=== PATIENT | female | born 1960 | race Caucasian/White ===

== ENCOUNTER → 2016-11-04 | Outpatient (CLI) | payer OTHER ==
--- NOTE | 2016-11-04 11:26 | MA ---
Screening Digital Mammogram With Tomosynthesis Clinical Indications: Routine screening. Technique: Standard digital cephalocaudal and tomosynthesis mediolateral oblique projections are obt ained. The digital images are processed by the [employer] [place] computer aided detection system. Comparison: 2007, 2008, 2009, 2010, 2012, 2013, 2013, 2015 and 2016 Breast density: C; The breast tissue is heterogeneously dense, which could obscure detection of small masses. Findings: CAD was reviewed. No suspicious findings are identified. Impression: Negative mammogram. BI-RADS 1. Recommendation: Routine screening is recommended in one year, as long as physical examination is александр ign in this patient with moderately dense breast parenchyma. [facility] will send a result letter to the patient. Negative mammography should not preclude additional workup of a clinically suspicious finding. The patient's information is entered into a reminder system with a target due date for her next mammo gram.
== END ==
LOC: FIMAGING 10:44
DX: Z12.31 Encounter for screening mammogram for malignant neoplasm of breast (principal)
CPT/HCPCS: G0202

== ENCOUNTER 2017-01-08 14:11 | Emergency (ER) | payer OTHER ==
[2017-01-08 14:23] VITALS: RESP 18
[2017-01-08] MEDS ORDERED: IPRATROPIUM/ALBUTEROL 3 ML DEYVIAL ONE (14:50)
[2017-01-08] MEDS ORDERED: IPRATROPIUM/ALBUTEROL 3 ML DEYVIAL IH ONE ×3 (14:50→16:35)
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
[2017-01-08] MEDS ORDERED: methylPREDNISolone 4 MG TAB PO ONE (15:50)
[2017-01-08 17:36] VITALS: BP 153/97; PULSE 99; TEMP 98.1; O2SAT 96
== END 2017-01-08 17:36 | disposition home or self-care (01) ==
DX: J45.909 Unspecified asthma, uncomplicated (principal); Z85.43 Personal history of malignant neoplasm of ovary

== ENCOUNTER 2017-02-05 19:05 | Emergency (ER) | payer OTHER ==
[2017-02-05] MEDS ORDERED: HYDROmorphONE/DILAUDID 1 MG/ML SYR IM ONE (19:17)
--- NOTE | 2017-02-05 19:19 | EDPHY ---
H & P Time Seen by Provider: 02/05/17 19:13 HPI/ROS: CHIEF COMPLAINT: Right foot pain HISTORY OF PRESENT ILLNESS: The patient is a 56-year-old healthy female who comes to the emergency department complaining of pain in her right foot. She states that she tripped down the last 3 steps at home just prior to arrival. She has some mild bruising and swelling over the 1st 2nd and 3rd MTP joints. Extreme tenderness even with light touch. Normal capillary refill and sensation. No ankle or proximal or mid foot pain. She denies injuries to her other extremities or head or torso. REVIEW OF SYSTEMS: Constitutional: denies: chills, fever, recent illness, recent injury EENTM: denies: blurred vision, double vision, nose congestion Respiratory: denies: cough, shortness of breath Cardiac: denies: chest pain, irregular heart rate, lightheadedness, palpitations Gastrointestinal/Abdominal: denies: abdominal pain, diarrhea, nausea, vomiting, blood streaked stools Genitourinary: denies: dysuria, frequency, hematuria, pain Musculoskeletal: See HPI Skin: denies: lesions, rash, jaundice, bruising Neurological: denies: headache, numbness, paresthesia, tingling, dizziness, weakness Hematologic/Lymphatic: denies: blood clots, easy bleeding, easy bruising Immunologic/allergic: denies: HIV/AIDS, transplant EXAM: GENERAL: Well-appearing, well-nourished and in no acute distress. HEAD: Atraumatic, normocephalic. EYES: Pupils equal round and reactive to light, extraocular movements intact, sclera anicteric, conjunctiva are normal. ENT: TMs normal, nares patent, oropharynx clear without exudates. Moist mucous membranes. NECK: Normal range of motion, supple without lymphadenopathy or JVD. LUNGS: Breath sounds clear to auscultation bilaterally and equal. No wheezes rales or rhonchi. HEART: Regular rate and rhythm without murmurs, rubs or gallops. ABDOMEN: Soft, nontender, normoactive bowel sounds. No guarding, no rebound. No masses appreciated. BACK: No CVA tenderness, no spinal tenderness, step-offs or deformities EXTREMITIES: Pain and bruising to for 2nd 3rd MTP joints see above NEUROLOGICAL: Cranial nerves II through XII grossly intact. Normal speech, normal gait. 5/5 strength, normal movement in all extremities, normal sensation PSYCH: Normal mood, normal affect. SKIN: Warm, dry, normal turgor, no visible rashes or lesions. Source: Patient Exam Limitations: No limitations - Personal History Tetanus Vaccine Date: 2003 - Medical/Surgical History Hx Asthma: Yes Hx Chronic Respiratory Disease: No Hx Diabetes: No Hx Cardiac Disease: No Hx Renal Disease: No Hx Cirrhosis: No Hx Alcoholism: No Hx HIV/AIDS: No Hx Splenectomy or Spleen Trauma: No Other PMH: PNEUMONIA IN 2016, ENDOMETRIOSIS WITH SURGERIES, TONSILLECTOMY, HYST , ALLERGIES-SEASONAL,HYPOTHYROID;ASTHMA. OVARIAN CA, FRACTURES- FIBULA- PLATE AND SCREWS, L AND R ANKLE FXS, CHOLECYSTECTOMY 2005, APPENDECTOMY, - Family History Significant Family History: No pertinent family hx - Social History Smoking Status: Never smoked Alcohol Use: Sober Drug Use: None Constitutional: Initial Vital Signs Temperature (C) 36.9 C 02/05/17 19:22 Heart Rate 74 02/05/17 19:22 Respiratory Rate 20 02/05/17 19:22 Blood Pressure 206/100 H 02/05/17 19:22 O2 Sat (%) 97 02/05/17 19:22 O2 Delivery Mode Room Air Allergies/Adverse Reactions: codeine Allergy (Verified 02/05/17 19:20) mushrooms Allergy (Uncoded 02/05/17 19:20) peppers Allergy (Uncoded 02/05/17 19:20) Home Medications: Medication Instructions Recorded Montelukast Sodium [Singulair 10 10 mg PO DAILY18 03/09/12 mg (*)] Fluticasone Nasal [Flonase Nasal 1 sprays NASAL HS PRN 04/21/12 [place]] Albuterol [Proventil Inhaler HFA 2 puffs IH BID 01/12/16 (*)] EPINEPHRINE [EPIPEN] 0.3 mg IM ONCE PRN 09/11/16 Levalbuterol 1.25 mg [Xopenex 1.25 mg IH TID PRN 09/11/16 1.25MG Neb (*)] Levothyroxine [Synthroid 75 mcg 75 mcg PO DAILY06 09/11/16 (*)] Estrace 01/08/17 Prednisone 01/08/17 Premarin 01/08/17 Spiriva Handihaler 01/08/17 Xopenex 01/08/17 oxyCODONE/APAP [Percocet 1 - 2 tab PO Q4H PRN #10 tab 02/05/17325 (*)] Medical Decision Making - Diagnostics Imaging Results: Imaging Impressions Foot X-Ray 02/05/17 19:17 Impression: Comminuted, intraarticular fracture at the base of the distal phalanx of the right great toe. Imaging: I viewed and interpreted images myself Procedures: Procedure: Splint placement. A [place] boot splint was applied. After application of the splint I returned and re-examined the patient. The splint was adequately immobilizing the joint and distal to the splint the patient's circulation and sensation was intact. ED Course/Re-evaluation: We discussed the x-ray results. She is placed in a [place] boot. She feels much more comfortable. She is requesting Percocet for pain. She has Zofran at home that she will take because it typically makes her nauseous. I will refer her to Podiatry because this is intra-articular. She and her understand and agree with this plan. They declined further workup or testing at this time. Differential Diagnosis: Partial list of the Differential diagnosis considered include but were not limited to; toe fracture, foot fracture, contusion, tendon injury and although unlikely based on the history and physical exam, I also considered infection, vascular injury. I discussed these differential diagnoses and the plan with the patient as well as the usual and expected course. The patient understands that the diagnosis is provisional and that in medicine we are not always correct and that further workup is often warranted. Usual and customary warnings were given. All of the patient's questions were answered. The patient was instructed to return to the emergency department should the symptoms at all worsen or return, otherwise to followup with the physician as we discussed. - Data Points Medications Given: Discontinued Medications Hydromorphone HCl (Dilaudid) 1 mg IM EDNOW ONE Stop: 02/05/17 19:18 Last Admin: 02/05/17 19:20 Dose: 1 mg Departure - Departure Disposition: Home, Routine, Self-Care Clinical Impression: Phalanx fracture, foot Qualifiers: Encounter type: initial encounter Toe: great toe Fracture type: closed Phalanx : distal Fracture alignment: displaced Laterality: right Qualified Code(s): S92.421A - Displaced fracture of distal phalanx of right great toe, initial encounter for closed fracture Condition: Fair Instructions: Toe Fracture (ED) Referrals: Sabi Gan MD [Primary Care Provider] - As per Instructions Cyndi Quintero DPM [Doctor of Podiatric Medicine] - As per Instructions Prescriptions: oxyCODONE/APAP 5/325 [Percocet 5/325 (*)] 1 - 2 tab PO Q4H PRN #10 tab PRN Reason: Pain, Severe
[2017-02-05 19:25] VITALS: RESP 20; TEMP 98.4
[2017-02-05] MEDS ORDERED: HYDROmorphONE/DILAUDID 1 MG/ML SYR ONE (19:26)
[2017-02-05 20:17] VITALS: BP 156/99; PULSE 72; O2SAT 95
== END 2017-02-05 20:16 | disposition home or self-care (01) ==
LOC: CED 19:05
DX: S92.421A Displaced fracture of distal phalanx of right great toe, initial encounter for closed fracture (principal); J45.909 Unspecified asthma, uncomplicated; Z85.43 Personal history of malignant neoplasm of ovary; W10.8XXA Fall (on) (from) other stairs and steps, initial encounter; Y92.009 Unspecified place in unspecified non-institutional (private) residence as the place of occurrence of the external cause
CPT/HCPCS: 73630-PO; J1170; L4386

== ENCOUNTER → 2017-03-02 | Outpatient (CLI) | payer OTHER | LOC: BMCIMAGING 14:21 | PROVIDERS: ATTEND Podiatrist Foot & Ankle Surgery | DX: S92.421D Displaced fracture of distal phalanx of right great toe, subsequent encounter for fracture with routine healing (principal) ==

== ENCOUNTER → 2017-03-04 | Outpatient (CLI) | payer OTHER | LOC: BMCIMAGING 16:01 | PROVIDERS: ATTEND Allergy & Immunology Allergy | DX: J40 Bronchitis, not specified as acute or chronic (principal) ==

== ENCOUNTER → 2017-04-01 | Outpatient (CLI) | payer OTHER | LOC: BMCIMAGING 13:32 | PROVIDERS: ATTEND Podiatrist Foot & Ankle Surgery | DX: S92.421D Displaced fracture of distal phalanx of right great toe, subsequent encounter for fracture with routine healing (principal) ==

== ENCOUNTER → 2017-05-05 | Outpatient (CLI) | payer OTHER | LOC: BMCIMAGING 15:58 | PROVIDERS: ATTEND Family Medicine | DX: S90.122A Contusion of left lesser toe(s) without damage to nail, initial encounter (principal); W22.8XXA Striking against or struck by other objects, initial encounter ==

== ENCOUNTER → 2017-05-10 | Outpatient (CLI) | payer OTHER | LOC: BMCIMAGING 12:46 | PROVIDERS: ATTEND Podiatrist Foot & Ankle Surgery | DX: S92.421D Displaced fracture of distal phalanx of right great toe, subsequent encounter for fracture with routine healing (principal) ==

== ENCOUNTER → 2017-05-24 | Outpatient (CLI) | payer OTHER | LOC: BMCIMAGING 13:06 | PROVIDERS: ATTEND Podiatrist Foot & Ankle Surgery | DX: S92.502D Displaced unspecified fracture of left lesser toe(s), subsequent encounter for fracture with routine healing (principal) ==

== ENCOUNTER → 2017-07-29 | Outpatient (CLI) | payer OTHER | LOC: BMCIMAGING 12:40 | PROVIDERS: ATTEND Podiatrist Foot & Ankle Surgery | DX: S92.421D Displaced fracture of distal phalanx of right great toe, subsequent encounter for fracture with routine healing (principal) ==

== ENCOUNTER → 2017-11-05 | Outpatient (CLI) | payer OTHER | LOC: FIMAGING 10:16 | PROVIDERS: ATTEND Family Medicine | DX: Z12.31 Encounter for screening mammogram for malignant neoplasm of breast (principal) ==

== ENCOUNTER → 2018-01-20 | Outpatient (CLI) | payer OTHER | LOC: FIMAGING 12:52 | PROVIDERS: ATTEND Family Medicine | DX: Z13.820 Encounter for screening for osteoporosis (principal); M85.89 Other specified disorders of bone density and structure, multiple sites; N28.89 Other specified disorders of kidney and ureter; Z87.42 Personal history of other diseases of the female genital tract; Z87.440 Personal history of urinary (tract) infections; Z85.43 Personal history of malignant neoplasm of ovary ==

== ENCOUNTER → 2018-02-01 | Outpatient (CLI) | payer OTHER ==
[~2018-02-01] MED LIST: IOPAMIDOL (ISOVUE-300) 150 ML BTL ONE
== END ==
LOC: FIMAGING 10:57
PROVIDERS: ATTEND Urology
DX: N28.89 Other specified disorders of kidney and ureter (principal); N28.1 Cyst of kidney, acquired; K76.89 Other specified diseases of liver; M51.26 Other intervertebral disc displacement, lumbar region; M48.061 Spinal stenosis, lumbar region without neurogenic claudication; Z90.49 Acquired absence of other specified parts of digestive tract; Z90.710 Acquired absence of both cervix and uterus
CPT/HCPCS: Q9967

== ENCOUNTER → 2018-02-07 | Outpatient (CLI) | payer OTHER | LOC: FIMAGING 12:28 | PROVIDERS: ATTEND Allergy & Immunology Allergy | DX: J45.909 Unspecified asthma, uncomplicated (principal) ==

== ENCOUNTER → 2018-02-16 | Outpatient (CLI) | payer OTHER ==
[~2018-02-16] MED LIST changes: +FUROSEMIDE 40 MG/4 ML VIAL ONE; -IOPAMIDOL (ISOVUE-300) 150 ML BTL ONE
== END ==
LOC: FIMAGING 12:48
PROVIDERS: ATTEND Urology
DX: N28.9 Disorder of kidney and ureter, unspecified (principal)
CPT/HCPCS: A9562; J1940

== ENCOUNTER → 2018-09-15 | Outpatient (CLI) | payer OTHER | LOC: FIMAGING 08:44 | PROVIDERS: ATTEND Otolaryngology | DX: J32.0 Chronic maxillary sinusitis (principal); Z98.890 Other specified postprocedural states ==

== ENCOUNTER → 2018-11-07 | Outpatient (CLI) | payer BC | LOC: FIMAGING 10:11 | PROVIDERS: ATTEND Family Medicine | DX: Z12.31 Encounter for screening mammogram for malignant neoplasm of breast (principal) ==

== ENCOUNTER 2019-02-26 14:25 | Emergency (ER) | payer BC ==
[2019-02-26] MEDS ORDERED: ACETAMINOPHEN 500 MG TAB ONE (14:35)
[2019-02-26] MEDS ORDERED: IBUPROFEN 600 MG TAB PO ONE (14:35)
--- NOTE | 2019-02-26 15:08 | EDPHY ---
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 She landed on her left outstretched forearm. She has pain in her mid lateral forearm extending to her wrist. Does have a history of a fracture on that side when she was a child. Did not hit her head. No loss of conscious. No numbness weakness or tingling. No other injuries. ROS: 10 systems were reviewed and were negative except those elements noted in the HPI. Social History: No smoking, no alcohol, no recreational drug use Family History: non-contributory Physical Exam: General: Awake, alert, no acute distress Left upper extremity: Shoulder: Nontender, full range of motion without pain Left elbow: Patient has mild tenderness over the proximal ulna. There is also some tenderness over the radial head. She is unable to fully supinate secondary to pain. She has decreased range of motion secondary to pain. She is holding the elbow in 90 flexion. Left wrist: Nontender, no deformity, full range of motion without pain. Left hand: Sensation intact in the radial, median, ulnar nerve distribution. 2 + radial ulnar pulses. Capillary refills less than 2 sec Skin: No rash - Personal History Current Tetanus Diphtheria and Acellular Pertussis (TDAP): Unsure Tetanus Vaccine Date: 2003 - Medical/Surgical History Hx Asthma: Yes Hx Chronic Respiratory Disease: No Hx Diabetes: No Hx Cardiac Disease: No Hx Renal Disease: No Hx Cirrhosis: No Hx Alcoholism: No Hx HIV/AIDS: No Hx Splenectomy or Spleen Trauma: No Other PMH: PNEUMONIA IN 2016, ENDOMETRIOSIS WITH SURGERIES, TONSILLECTOMY, HYST , ALLERGIES-SEASONAL,HYPOTHYROID;ASTHMA. OVARIAN CA, FRACTURES- FIBULA- PLATE AND SCREWS, L AND R ANKLE FXS, CHOLECYSTECTOMY 2005, APPENDECTOMY, - Social History Smoking Status: Never smoked Constitutional: Initial Vital Signs Temperature (C) 36.6 C 02/26/19 14:28 Respiratory Rate 18 02/26/19 14:28 O2 Sat (%) 97 02/26/19 14:28 O2 Delivery Mode Room Air Allergies/Adverse Reactions: codeine Allergy (Verified 02/05/17 19:20) mushrooms Allergy (Uncoded 02/05/17 19:20) peppers Allergy (Uncoded 02/05/17 19:20) Home Medications: Medication Instructions Recorded Montelukast Sodium [Singulair 10 10 mg PO DAILY18 03/09/12 mg (*)] Fluticasone Nasal [Flonase Nasal 1 sprays NASAL HS PRN 04/21/12 [place]] Albuterol [Proventil Inhaler HFA 2 puffs IH BID 01/12/16 (*)] EPINEPHRINE [EPIPEN] 0.3 mg IM ONCE PRN 09/11/16 Levalbuterol 1.25 mg [Xopenex 1.25 mg IH TID PRN 09/11/16 1.25MG Neb (*)] Levothyroxine [Synthroid 75 mcg 75 mcg PO DAILY06 09/11/16 (*)] Estrace 01/08/17 Prednisone 01/08/17 Premarin 01/08/17 Spiriva Handihaler 01/08/17 Xopenex 01/08/17 oxyCODONE/APAP 5/325 [Percocet 1 - 2 tab PO Q4H PRN #10 tab 02/05/17 5/325 (*)] Medical Decision Making - Diagnostics Imaging Results: Imaging Impressions Wrist X-Ray 02/26/19 14:26 Impression: Negative. No acute fracture. Forearm X-Ray 02/26/19 14:27 Impression: Elbow effusion. Query occult radial neck fracture. ED Course/Re-evaluation: X-ray shows no obvious fractures but there is no effusion concerning for an occult radial head fracture. She has been placed in a sling. Will discharge with follow-up with Orthopedics. She is declining narcotic analgesia at this time as a causes or significant nausea. I have recommended ice, Tylenol and Motrin, follow up with Orthopedics. Departure - Departure Disposition: Home, Routine, Self-Care Clinical Impression: Occult fracture of elbow Condition: Good Instructions: Elbow Fracture (ED), How to Use a Sling (ED) Additional Instructions: Take ibuprofen, 600 mg every 8 hr. You may alternate with acetaminophen, 1000 mg every 8 hr. Wear the sling until you follow up with Orthopedics. Follow up with Orthopedics in 3-4 days for further evaluation. Referrals: Fabio Kirby MD [Medical Doctor] - As per Instructions
[2019-02-26 15:30] VITALS: BP 124/88
== END 2019-02-26 15:29 | disposition home or self-care (01) ==
LOC: CED 14:25
DX: S52.132A Displaced fracture of neck of left radius, initial encounter for closed fracture (principal); W01.0XXA Fall on same level from slipping, tripping and stumbling without subsequent striking against object, initial encounter
CPT/HCPCS: 73090-PO; 73110-PO; 99283-ER; A4565-ER

== ENCOUNTER → 2019-03-30 | Outpatient (CLI) | payer BC | LOC: BMCIMAGING 12:59 ==